=== PATIENT | male | born 1980 | race Caucasian/White ===

== ENCOUNTER 2019-08-09 09:51 | Emergency (ER) | payer SELFPAY ==
[~2019-08-09] VITALS: Ht 185.4 cm; Wt 95.5 kg
[2019-08-09] MEDS ORDERED: normal saline 1000ml 1,000 ML IV ONE (10:20)
[2019-08-09] MEDS ORDERED: normal saline 1000ML IV soln IVB ONE ×2 (10:20→12:15)
[2019-08-09] MEDS ORDERED: LORazepam 2 mg/ml vial IV ONE (10:20)
--- NOTE | 2019-08-09 10:20 | NUR ---
all restraints removed. dr. Kelly did an exam
[2019-08-09 11:01] LABS: BASOPHILS % (AUTO) 0.3 % (0-1); EOSINOPHILS % (AUTO) 0 % (0-6); HEMATOCRIT 40.3 % (42.0-52.0); HEMOGLOBIN 13.4 g/dl (14.0-17.9); LYMPHOCYTES % (AUTO) 6.8 % (21-51); MEAN CORPUSCULAR HEMOGLOBIN 27.6 PG (27.0-31.0); MEAN CORPUSCULAR HGB CONC 33.2 g/dL (33.0-36.5); MEAN CORPUSCULAR VOLUME 83.2 FL (78-98); MEAN PLATELET VOLUME 7.7 FL (7.4-10.4); MONOCYTES # (AUTO) 1.2 X10'3 (0-0.9); MONOCYTES % (AUTO) 7.7 % (2-12); NEUTROPHILS % (AUTO) 85.2 % (42-75); PLATELET COUNT 312 X10'3 (140-440); RED BLOOD COUNT 4.84 X10'6 (4.70-6.10); RED CELL DISTRIBUTION WIDTH 13.8 % (11.5-14.5); WHITE BLOOD COUNT 15.3 X10'3 (4.5-11.0)
[2019-08-09 11:18] LABS: ALANINE AMINOTRANSFERASE 51 U/L (12-78); ALBUMIN 3.8 G/DL (3.4-5.0); ALKALINE PHOSPHATASE 83 IU/L (46-116); ANION GAP 10 (8-16); ASPARTATE AMINO TRANSFERASE 62 U/L (10-37); BILIRUBIN,TOTAL 0.7 MG/DL (0.1-1.0); BLOOD UREA NITROGEN 19 MG/DL (7-18); BUN/CREATININE RATIO 18.4 (5.4-32.0); CALCIUM 8.6 MG/DL (8.5-10.1); CHLORIDE 107 MMOL/L (99-107); CREATININE 1.03 MG/DL (0.60-1.10); GLUCOSE 105 MG/DL (70-104); POTASSIUM 3.2 MMOL/L (3.5-5.1); SODIUM 143 MMOL/L (135-145); TOTAL CARBON DIOXIDE 25.9 MMOL/L (24-32); TOTAL PROTEIN 7.5 G/DL (6.4-8.2); eGFR 81 ML/MIN
[2019-08-09 11:27] LABS: ETHANOL < 0.010 GM/DL (0.0-0.010); MAGNESIUM 2.3 MG/DL (1.5-2.4)
[2019-08-09 11:29] LABS: CREATINE KINASE 1784 U/L (39-308)
--- NOTE | 2019-08-09 11:45 | NUR ---
DR BROOKS ADVISES TO CANCEL UA
[2019-08-09 15:12] VITALS: BP 149/82
[2019-08-09 16:13] LABS: URINE AMPHETAMINE SCREEN NEGATIVE (Neg); URINE BARBITUATE SCREEN NEGATIVE (Neg); URINE BENZODIAZEPINES SCREEN NEGATIVE (Neg); URINE CANNABINOID SCREEN POSITIVE (Neg); URINE COCAINE SCREEN NEGATIVE (Neg); URINE METHADONE SCREEN NEGATIVE (Neg); URINE OPIATE SCREEN NEGATIVE (Neg); URINE PHENCYCLIDINE SCREEN NEGATIVE (Neg)
== END 2019-08-09 15:14 | disposition home or self-care (01) ==
LOC: ER 09:52 → EEVIPCON 09:52 → ER 15:14
DX: F15.10 Other stimulant abuse, uncomplicated (principal); M62.82 Rhabdomyolysis; R41.82 Altered mental status, unspecified
CPT/HCPCS: 36415; 71045; 80053; 80305; 80320; 82550; 83735; 84484; 85025; 93005; 96361; 96374; 99285; J2060; J7030

== ENCOUNTER 2019-08-10 16:09 | Emergency (ER) | payer MEDICAID ==
[~2019-08-10] VITALS: Ht 185.4 cm; Wt 99.8 kg
--- NOTE | 2019-08-10 18:55 | NUR ---
Pt sleeping. Respirations unlabored. NAD
[2019-08-10 19:06] VITALS: BP 130/78
--- NOTE | 2019-08-10 19:44 | NUR ---
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
== END 2019-08-10 20:07 | disposition home or self-care (01) ==
LOC: ER 16:10
DX: M79.604 Pain in right leg (principal); F12.90 Cannabis use, unspecified, uncomplicated; F17.200 Nicotine dependence, unspecified, uncomplicated
CPT/HCPCS: 93971; 99284